=== PATIENT | female | born 1960 | race Caucasian/White ===

== ENCOUNTER 2020-08-21 18:32 | Inpatient (IN) | payer OTHER, SELFPAY ==
[2020-08-21 18:30] VITALS: BP 119/62; PULSE 64; RESP 20; TEMP 37.4; O2SAT 97; BMI 43.5
[2020-08-21 19:48] VITALS: BP 119/62; PULSE 64; RESP 20; TEMP 37.4; O2SAT 97; BMI 43.5
[2020-08-21 20:25] VITALS: BMI 43.5
--- NOTE | 2020-08-21 20:49 | PM.IMHP ---
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 Patient also with history of vertebral osteomyelitis and osteomyelitis of the left toe. Patient has a history of depression diabetes type 2 and paraplegia, paraplegia appears to be secondary to what they describe as concern for transverse myelitis. Patient had a echocardiogram that showed no vegetation. Review of Systems Review of Systems: All systems reviewed & are unremarkable except as noted in HPI and below PMFSH Past Medical History Medical History Paraspinal abscess Social History Social History Smoking packs per day: 2 Smoking cigarettes per day: 40.0 Smoking status: Former smoker Tobacco type: cigarettes Smokeless tobacco user: snuff Smoking end date: 10/25/19 Alcohol intake: current Drinks per week: 2 Substance use: never Gender identity (if verbalized by the patient): Female Sexual Orientation (if Verbalized by the Patient): Straight or Heterosexual Spiritual care concerns: No Meds Home Medications and Allergies Home Medications Medication Instructions Recorded Confirmed Type acetaminophen 650 mg PO Q4H PRN 08/21/20 08/21/20 History aspirin [Adult Aspirin] 81 mg PO DAILY 08/21/20 08/21/20 History atorvastatin 80 mg PO DAILY 08/21/20 08/21/20 History baclofen 10 mg PO TID PRN 08/21/20 08/21/20 History clopidogrel 75 mg PO DAILY 08/21/20 08/21/20 History famotidine 20 mg PO BID PRN 08/21/20 08/21/20 History ferrous sulfate 324 mg PO BIDWM 08/21/20 08/21/20 History gabapentin 100 mg PO TID 08/21/20 08/21/20 History insulin glargine [Lantus U-100 32 unit SUBCUT QPM 08/21/20 08/21/20 History Insulin] lidocaine [Lidoderm] 1 patch TOPICAL DAILY 08/21/20 08/21/20 History metformin 1,000 mg PO BID 08/21/20 08/21/20 History metoprolol succinate [Toprol XL] 200 mg PO DAILY 08/21/20 08/21/20 History ondansetron [Zofran ODT] 4 mg PO Q6H PRN 08/21/20 08/21/20 History oxacillin in dextrose(iso-osm) 2,000 mg IV Q4H 08/21/20 08/21/20 History oxycodone 10 mg PO Q4H PRN 08/21/20 08/21/20 History pantoprazole 40 mg PO QAM 08/21/20 08/21/20 History polyethylene glycol 3350 [Miralax] 17 g PO BID 08/21/20 08/21/20 History sennosides-docusate sodium [Senna 2 tab-cap PO BID 08/21/20 08/21/20 History with Docusate Sodium] venlafaxine [Effexor XR] 150 mg PO DAILY 08/21/20 08/21/20 History Allergies Allergy/AdvReac Type Severity Reaction Status Date / Time metrizamide Allergy Intermediate Hives Verified 08/21/20 18:37 Vital Signs Vital Signs - 24 hr 08/21/20 18:30 08/21/20 19:48 Temperature 37.4 C 37.4 C Pulse Rate 64 64 Respiratory Rate 20 20 Blood Pressure 119/62 119/62 Pulse Oximetry 97 97 Exam Const: General: no acute distress HENMT: Ears: TM's normal bilaterally Eyes: General: appearance normal, both eyes and all related structures Neck: Neck: no JVD Resp: Auscultation: clear to auscultation bilaterally Cardio: Rate: regular rate Rhythm: regular rhythm GI: GI Palp: Yes Soft to palpation Skin: General skin exam: normal color and no rashes or lesions noted Neuro: Cognition (Neuro): normal cognition Motor exam (neuro): Abnormal motor strength present Psych: Mental Status: mental status grossly normal
[2020-08-21] MEDS: oxyCODONE HCL (*CRX) 5 MG TAB IR 10 MG PO (21:47)
[2020-08-21] MEDS: OXACILLIN SODIUM 2 GM IVPB (22:17)
[2020-08-21] MEDS: BACLOFEN 10 MG TABLET PO (22:18)
[2020-08-22] VITALS (7 sets, daily range): BP systolic 105–146; BP diastolic 62–78; PULSE 58–81; RESP 14–20; TEMP 35.9–37.8; O2SAT 93–96; BMI 10.0
[2020-08-22] MEDS: OXACILLIN SODIUM 2 GM IVPB ×2 (01:59→05:46)
[2020-08-22] MEDS: BACLOFEN 10 MG TABLET PO (05:56)
[2020-08-22] MEDS: oxyCODONE HCL (*CRX) 5 MG TAB IR 10 MG PO ×2 (05:56→18:01)
--- NOTE | 2020-08-22 07:21 | PC.NURSE ---
Patient noted to have pressure area on left interior glute 2 cm x 2 cm with yellow slough and scant yellow drainage. Barrier cream applied to area.
[2020-08-22] MEDS: ONDANSETRON HCL ODT 4 MG TABLET PO (08:24)
[2020-08-22] MEDS: FERROUS SULFATE 324 MG TABLET PO ×2 (08:24→17:40)
[2020-08-22] MEDS: metFORMIN HCL 500 MG TABLET 1000 MG PO ×2 (08:24→17:40)
[2020-08-22 08:28] LABS: Basophils Absolute Auto 0.03 K/mm3 (0.00-0.10); Basophils Percent Auto 0.3 % (0.0-1.0); Eosinophils Percent Auto 2.1 % (1.0-6.0); Hematocrit 26.1 % (35.0-49.0); Hemoglobin 7.9 g/dL (12.0-15.0); Immature Granulocyte Absolute 0.06 K/mm3 (0.00-0.00); Immature Granulocyte Percent A 0.6 % (0.0-0.0); Lymphocytes Percent Auto 13.7 % (18.0-42.0); Mean Corpuscular HGB Conc 30.3 g/dL (32.0-36.0); Mean Corpuscular Hemoglobin 25.9 pg (27.0-31.0); Mean Corpuscular Volume 85.6 fL (78.0-102.0); Mean Platelet Volume 8.7 fl (9.2-11.8); Monocytes Absolute Auto 0.76 K/mm3 (0.10-0.90); Neutrophils Absolute Auto 7.2 K/mm3 (1.7-7.2); Neutrophils Percent Auto 75.3 % (50.0-70.0); Platelet Count Result 345 K/mm3 (150-420); Red Blood Count 3.05 M/mm3 (4.20-5.40); Red Cell Distribution Width 16.3 % (11.6-14.4); White Blood Count 9.5 K/mm3 (4.8-10.8)
[2020-08-22 08:32] LABS: Glucose Point of Care 103 (65-105)
[2020-08-22 08:58] LABS: Alanine Aminotransferase 8 U/L (14-59); Albumin Level 1.5 g/dL (3.4-5.0); Alkaline Phosphatase 65 U/L (46-116); Anion Gap 6 mmol/L (8-16); Aspartate Amino Transferase 12 U/L (15-37); Bilirubin,Total 0.1 mg/dL (0.00-1.00); Blood Urea Nitrogen 8 mg/dL (7-18); Calcium 8.2 mg/dL (8.5-10.1); Carbon Dioxide 29 mmol/L (21-32); Chloride 99 mmol/L (98-108); Estimated CRCL calculation 119 ml/min; Estimated Glomerular Filt Rate > 60; Glucose 104 mg/dL (70-99); Osmolality Calculated 276 mOsm/kg (285-295); Potassium 4.3 mmol/L (3.5-5.1); Sodium 134 mmol/L (136-145); Total Protein 5.8 g/dL (6.4-8.2)
[2020-08-22] MEDS: ATORVASTATIN 40 MG TABLET 80 MG PO (09:43)
[2020-08-22] MEDS: OXACILLIN SODIUM 2 GM in SODIUM CHLORIDE 0.9% IV 100 ML IVPB ×4 (09:44→21:59)
[2020-08-22] MEDS: ACETAMINOPHEN 325 MG TABLET 650 MG PO (09:46)
[2020-08-22] MEDS: VENLAFAXINE HCL XR 75 MG CAP.ER.24H 150 MG PO (09:46)
[2020-08-22] MEDS: GABAPENTIN 100 MG CAPSULE PO ×3 (09:47→17:40)
[2020-08-22] MEDS: ASPIRIN 81 MG CHEWABLE TABLET PO (09:48)
[2020-08-22] MEDS: CLOPIDOGREL BISULFATE 75 MG TABLET PO (09:48)
[2020-08-22] MEDS: PANTOPRAZOLE 40 MG TABLET PO (09:48)
[2020-08-22] MEDS: SENNA/DOCUSATE SODIUM TABLET 2 TAB PO (09:48)
[2020-08-22 11:51] LABS: Glucose Point of Care 115 (65-105)
[2020-08-22] MEDS: PROCHLORPERAZINE EDISYLATE 10 MG/2 ML VIAL IV PUSH (12:43)
[2020-08-22 16:59] LABS: Glucose Point of Care 107 (65-105)
[2020-08-22] MEDS: INSULIN GLARGINE (*BKC) 100 UNITS/ML 32 UNITS SUB-Q (18:13)
[2020-08-22 20:18] LABS: Glucose Point of Care 99 (65-105)
[2020-08-22] MEDS: COLLAGENASE OINT 30 GM TUBE 1 APPLIC TOPICAL (20:50)
[2020-08-23] MEDS: OXACILLIN SODIUM 2 GM in SODIUM CHLORIDE 0.9% IV 100 ML IVPB ×6 (01:56→22:38)
[2020-08-23] MEDS: oxyCODONE HCL (*CRX) 5 MG TAB IR 10 MG PO ×5 (04:44→21:04)
[2020-08-23 05:44] LABS: Hematocrit 26.8 % (35.0-49.0); Hemoglobin 8.1 g/dL (12.0-15.0); Mean Corpuscular HGB Conc 30.2 g/dL (32.0-36.0); Mean Corpuscular Hemoglobin 25.9 pg (27.0-31.0); Mean Corpuscular Volume 85.6 fL (78.0-102.0); Platelet Count Result 358 K/mm3 (150-420); Red Blood Count 3.13 M/mm3 (4.20-5.40); White Blood Count 9.3 K/mm3 (4.8-10.8)
[2020-08-23 06:04] LABS: Anion Gap 7 mmol/L (8-16); Blood Urea Nitrogen 7 mg/dL (7-18); Calcium 8.4 mg/dL (8.5-10.1); Carbon Dioxide 29 mmol/L (21-32); Chloride 102 mmol/L (98-108); Estimated CRCL calculation 137 ml/min; Estimated Glomerular Filt Rate > 60; Glucose 63 mg/dL (70-99); Osmolality Calculated 282 mOsm/kg (285-295); Potassium 4.2 mmol/L (3.5-5.1); Sodium 138 mmol/L (136-145)
[2020-08-23 08:00] VITALS: BP 134/64; PULSE 84; RESP 20; TEMP 37.2; O2SAT 94
[2020-08-23 08:11] LABS: Glucose Point of Care 68 (65-105)
[2020-08-23] MEDS: ACETAMINOPHEN 325 MG TABLET 650 MG PO (09:08)
[2020-08-23] MEDS: BACLOFEN 10 MG TABLET PO ×2 (09:08→16:37)
[2020-08-23] MEDS: metFORMIN HCL 500 MG TABLET 1000 MG PO ×2 (09:09→16:37)
[2020-08-23] MEDS: GABAPENTIN 100 MG CAPSULE PO ×3 (09:10→16:37)
[2020-08-23] MEDS: PANTOPRAZOLE 40 MG TABLET PO (09:10)
[2020-08-23] MEDS: CLOPIDOGREL BISULFATE 75 MG TABLET PO (09:10)
[2020-08-23] MEDS: VENLAFAXINE HCL XR 75 MG CAP.ER.24H 150 MG PO (09:10)
[2020-08-23] MEDS: FAMOTIDINE 20 MG TABLET PO (09:11)
[2020-08-23] MEDS: ATORVASTATIN 40 MG TABLET 80 MG PO (09:11)
[2020-08-23] MEDS: ASPIRIN 81 MG CHEWABLE TABLET PO (09:11)
[2020-08-23] MEDS: FERROUS SULFATE 324 MG TABLET PO ×2 (09:11→16:37)
[2020-08-23 09:12] VITALS: PULSE 84
[2020-08-23] MEDS: METOPROLOL SUCCINATE EXT REL 50 MG TABCR 200 MG PO (09:12)
[2020-08-23] MEDS: COLLAGENASE OINT 30 GM TUBE 1 APPLIC TOPICAL ×2 (09:13→21:13)
[2020-08-23 11:34] LABS: Glucose Point of Care 70 (65-105)
[2020-08-23 16:00] VITALS: BP 134/61; PULSE 68; RESP 18; TEMP 36.6; O2SAT 95
[2020-08-23] MEDS: ONDANSETRON HCL ODT 4 MG TABLET PO (16:36)
[2020-08-23 16:46] LABS: Glucose Point of Care 65 (65-105)
--- NOTE | 2020-08-23 17:45 | PC.NURSE ---
Dressing change to left foot complete. Patient tolerated well. Sutures in place,well approximated. NO s/s infection. Lantus 32 Units held. Blood sugars AC: 68, 70, 65. Per Dr. Dyer
[2020-08-23] MEDS: PROCHLORPERAZINE EDISYLATE 10 MG/2 ML VIAL IV PUSH (21:05)
[2020-08-23 21:32] LABS: Glucose Point of Care 80 (65-105)
[2020-08-24] VITALS: BP 124/51; PULSE 69; RESP 18; TEMP 36.4
[2020-08-24] MEDS: OXACILLIN SODIUM 2 GM in SODIUM CHLORIDE 0.9% IV 100 ML IVPB ×6 (02:15→22:13)
[2020-08-24] MEDS: oxyCODONE HCL (*CRX) 5 MG TAB IR 10 MG PO ×4 (07:34→20:44)
[2020-08-24] MEDS: ONDANSETRON HCL ODT 4 MG TABLET PO (07:34)
[2020-08-24] MEDS: BACLOFEN 10 MG TABLET PO ×3 (07:35→20:45)
[2020-08-24 07:41] LABS: Glucose Point of Care 106 (65-105)
[2020-08-24 08:00] VITALS: BP 139/56; PULSE 70; RESP 18; TEMP 36.9; O2SAT 95
[2020-08-24] MEDS: VENLAFAXINE HCL XR 75 MG CAP.ER.24H 150 MG PO (09:31)
[2020-08-24] MEDS: metFORMIN HCL 500 MG TABLET 1000 MG PO ×2 (09:31→16:46)
[2020-08-24] MEDS: ATORVASTATIN 40 MG TABLET 80 MG PO (09:31)
[2020-08-24] MEDS: FERROUS SULFATE 324 MG TABLET PO ×2 (09:31→16:47)
[2020-08-24] MEDS: CLOPIDOGREL BISULFATE 75 MG TABLET PO (09:31)
[2020-08-24 09:32] VITALS: PULSE 70
[2020-08-24] MEDS: GABAPENTIN 100 MG CAPSULE PO ×3 (09:32→16:46)
[2020-08-24] MEDS: METOPROLOL SUCCINATE EXT REL 50 MG TABCR 200 MG PO (09:32)
[2020-08-24] MEDS: ASPIRIN 81 MG CHEWABLE TABLET PO (09:32)
[2020-08-24] MEDS: PANTOPRAZOLE 40 MG TABLET PO (09:32)
[2020-08-24] MEDS: FAMOTIDINE 20 MG TABLET PO (09:33)
[2020-08-24] MEDS: COLLAGENASE OINT 30 GM TUBE 1 APPLIC TOPICAL ×2 (09:35→20:46)
[2020-08-24 11:59] LABS: Glucose Point of Care 101 (65-105)
--- NOTE | 2020-08-24 13:31 | PC.NURSE ---
Patient refused santyl to buttocks at this time. Refused dressing to be changed at this time.
[2020-08-24 16:00] VITALS: BP 148/57; PULSE 79; RESP 18; TEMP 37.3; O2SAT 92
[2020-08-24 16:56] LABS: Glucose Point of Care 107 (65-105)
[2020-08-24 20:57] LABS: Glucose Point of Care 116 (65-105)
[2020-08-25] VITALS: BP 121/48; PULSE 74; RESP 18; TEMP 36.7; O2SAT 90
--- NOTE | 2020-08-25 01:11 | PC.NURSE ---
Patient choose not to be turned and repositioned in bed every 2 hours. Patient states that she is comfortable and will notify handbook writer when need to be repositioned. Tension Machine Operator did give education on wound care and healing process and positive effects with turning and reposition. Patient aware.
[2020-08-25] MEDS: OXACILLIN SODIUM 2 GM in SODIUM CHLORIDE 0.9% IV 100 ML IVPB ×6 (02:05→22:12)
[2020-08-25] MEDS: BACLOFEN 10 MG TABLET PO ×2 (06:06→13:43)
[2020-08-25] MEDS: oxyCODONE HCL (*CRX) 5 MG TAB IR 10 MG PO ×3 (06:06→16:07)
[2020-08-25 07:30] VITALS: BP 141/54; PULSE 76; RESP 18; TEMP 37.1; O2SAT 93
[2020-08-25 08:13] LABS: Glucose Point of Care 113 (65-105)
[2020-08-25] MEDS: FAMOTIDINE 20 MG TABLET PO (09:16)
[2020-08-25 09:17] VITALS: PULSE 76
[2020-08-25 09:17] LABS: Hematocrit 26.2 % (35.0-49.0); Hemoglobin 8.1 g/dL (12.0-15.0)
[2020-08-25] MEDS: PANTOPRAZOLE 40 MG TABLET PO (09:17)
[2020-08-25] MEDS: METOPROLOL SUCCINATE EXT REL 50 MG TABCR 200 MG PO (09:17)
[2020-08-25] MEDS: ATORVASTATIN 40 MG TABLET 80 MG PO (09:18)
[2020-08-25] MEDS: VENLAFAXINE HCL XR 75 MG CAP.ER.24H 150 MG PO (09:18)
[2020-08-25] MEDS: GABAPENTIN 100 MG CAPSULE PO ×3 (09:18→16:07)
[2020-08-25] MEDS: ASPIRIN 81 MG CHEWABLE TABLET PO (09:18)
[2020-08-25] MEDS: FERROUS SULFATE 324 MG TABLET PO ×2 (09:18→16:07)
[2020-08-25] MEDS: SENNA/DOCUSATE SODIUM TABLET 2 TAB PO ×2 (09:18→16:07)
[2020-08-25] MEDS: CLOPIDOGREL BISULFATE 75 MG TABLET PO (09:19)
[2020-08-25] MEDS: COLLAGENASE OINT 30 GM TUBE 1 APPLIC TOPICAL ×2 (09:20→20:50)
[2020-08-25 10:19] LABS: Glucose Point of Care 243 (65-105)
[2020-08-25 11:47] LABS: Glucose Point of Care 156 (65-105)
[2020-08-25] MEDS: ONDANSETRON HCL ODT 4 MG TABLET PO (11:58)
[2020-08-25 14:00] VITALS: BP 160/54; PULSE 80; RESP 18; TEMP 36.9; O2SAT 97
--- NOTE | 2020-08-25 14:49 | PM.IMPN ---
Progress Note: A&P Assessment and Plan (1) Paraspinal abscess: Code(s): M46.20 - Osteomyelitis of vertebra, site unspecified Status: Acute Assessment and Plan: 08/25/2020 Oxacillin IV for 6 weeks, end date of 09/29/2020, cause of paraplegia, evaluating LE for sensation, both LE show fasciculation greater on the Left side, legs marked where Pt states she is able to start feeling light touch, PT working with Pt from Upper body strength and passive movement of LE (2) Vertebral osteomyelitis: Code(s): M46.20 - Osteomyelitis of vertebra, site unspecified Status: Acute Assessment and Plan: 08/25/2020 again Oxacillin IV for 6 weeks with end date of 09/29/2020, Lidocaine Patch, Oxycodone Q4H, pain is well controled at this time (3) Amputation of left great toe: Code(s): S98.112A - Complete traumatic amputation of left great toe, initial encounter Status: Acute Assessment and Plan: 08/25/2020 remove sutures today, site has healed well, site is not draining. (4) Depression: Code(s): F32.9 - Major depressive disorder, single episode, unspecified Status: Acute Assessment and Plan: 08/25/2020 continue home medication of Effexor, monitor Pt and make changes as needed. (5) Type 2 diabetes mellitus: Code(s): E11.9 - Type 2 diabetes mellitus without complications Status: Acute Assessment and Plan: 08/25/2020 glucose checks ACHS, Hypoglycemic protocol in place, Consistent Carb Diet, continue Gabapentin, Glargine 32 U PM, SSI, Metformin, will make adjustments as needed (6) Epigastric pain: Code(s): R10.13 - Epigastric pain Status: Acute Assessment and Plan: 08/25/2020 Pt is currently on Pepcid and Protonix, Zofran was added (7) Hypertension: Code(s): I10 - Essential (primary) hypertension Status: Acute Assessment and Plan: 08/25/2020 continue with metoprolol, monitor VS, make adjustment to medications as needed. VSS at this time Subjective Date/time seen: 08/25/20 14:49 Pt states in general she feels pretty good and admits that on occasion she is depressed given her paralysis and hospitalization. Today Pt states that she thinks she is able to move her left foot once in a while. (assessment: this looks like fasciculation). Pt denies breathing difficulty and no CP. She has a minor complaint of epigastric pain that started today, currently on Pepcid and Protonix and Zofran. Pt has no other concern at this time. Review of Systems Constitutional: Constitutional: Reports no additional constitutional complaints Cardiovascular: Cardiovascular: Reports no additional cardiovascular complaints, Denies chest pain, Denies chest pain at rest and Denies chest pain with activity Respiratory: Respiratory: Reports no additional respiratory complaints, Denies chest congestion, Denies dyspnea and Denies dyspnea on exertion Gastrointestinal: Gastrointestinal: Reports no additional gastrointestinal complaints and Reports other (epigastric pain) Musculoskeletal: Comments: Unable to move below pelvis Integumentary/Breasts: Comments: Surgical site left great toe amputation Neurologic: Reports Sensory deficit (Neuro) (bilateral LE) Exam Const: General: cooperative, comfortable, no acute distress, alert, awake and Physically active (with care and helps turn and move in bed) Nutritional Appearance: obese morbidly obese Limitations: no limitations (Paraplegia) Resp: Effort & Inspection: normal respiratory effort Auscultation: clear to auscultation bilaterally Cardio: Rate: regular rate Heart sounds: S1 normal heart sound present and S2 normal heart sound present GI: GI Palp: Yes abdominal tenderness (mostly epigastric to palpation) Urinary Catheter: Urinary Catheter: patent and draining Neuro: General: oriented to person, oriented to place and oriented to time Cranial nerves: Yes CN's II-XII intact bilaterally (grossly intact) Cognition (Neuro):
[2020-08-25] MEDS: metFORMIN HCL 500 MG TABLET 1000 MG PO (16:07)
[2020-08-25 16:10] VITALS: BP 140/58; PULSE 74; RESP 18; TEMP 36.8; O2SAT 96
[2020-08-25 16:15] LABS: Glucose Point of Care 122 (65-105)
[2020-08-25] MEDS: ACETAMINOPHEN 325 MG TABLET 650 MG PO (18:04)
[2020-08-25] MEDS: PROCHLORPERAZINE EDISYLATE 10 MG/2 ML VIAL IV PUSH (18:05)
[2020-08-25 20:42] LABS: Glucose Point of Care 110 (65-105)
[2020-08-26] VITALS: BP 155/75; PULSE 75; RESP 20; TEMP 36.9; O2SAT 95
[2020-08-26] MEDS: OXACILLIN SODIUM 2 GM in SODIUM CHLORIDE 0.9% IV 100 ML IVPB ×6 (01:51→21:58)
[2020-08-26] MEDS: oxyCODONE HCL (*CRX) 5 MG TAB IR 10 MG PO ×4 (06:55→20:15)
[2020-08-26 07:45] VITALS: BP 149/53; PULSE 83; RESP 20; TEMP 37.2; O2SAT 94
[2020-08-26 08:21] LABS: Glucose Point of Care 101 (65-105)
[2020-08-26] MEDS: VENLAFAXINE HCL XR 75 MG CAP.ER.24H 150 MG PO (09:38)
[2020-08-26 09:39] VITALS: PULSE 83
[2020-08-26] MEDS: PANTOPRAZOLE 40 MG TABLET PO (09:39)
[2020-08-26] MEDS: CLOPIDOGREL BISULFATE 75 MG TABLET PO (09:39)
[2020-08-26] MEDS: SENNA/DOCUSATE SODIUM TABLET 2 TAB PO ×2 (09:39→16:24)
[2020-08-26] MEDS: ATORVASTATIN 40 MG TABLET 80 MG PO (09:39)
[2020-08-26] MEDS: METOPROLOL SUCCINATE EXT REL 50 MG TABCR 200 MG PO (09:39)
[2020-08-26] MEDS: COLLAGENASE OINT 30 GM TUBE 1 APPLIC TOPICAL ×2 (09:40→21:26)
[2020-08-26] MEDS: FERROUS SULFATE 324 MG TABLET PO ×2 (09:40→16:25)
[2020-08-26] MEDS: ASPIRIN 81 MG CHEWABLE TABLET PO (09:40)
[2020-08-26] MEDS: GABAPENTIN 100 MG CAPSULE PO ×3 (09:40→16:25)
[2020-08-26] MEDS: BACLOFEN 10 MG TABLET PO ×2 (09:40→20:17)
[2020-08-26 11:00] VITALS: BMI 10.0
[2020-08-26 11:05] VITALS: BMI 10.0
[2020-08-26 11:51] LABS: Glucose Point of Care 103 (65-105)
[2020-08-26] MEDS: FAMOTIDINE 20 MG TABLET PO (11:52)
[2020-08-26] MEDS: ACETAMINOPHEN 325 MG TABLET 650 MG PO ×2 (14:08→22:20)
[2020-08-26 15:55] VITALS: BP 141/63; PULSE 75; RESP 18; TEMP 37.2; O2SAT 98
[2020-08-26] MEDS: metFORMIN HCL 500 MG TABLET 1000 MG PO (16:25)
[2020-08-26 17:04] LABS: Glucose Point of Care 105 (65-105)
[2020-08-27] VITALS: BP 129/56; PULSE 88; RESP 20; TEMP 36.3; O2SAT 96
[2020-08-27] MEDS: OXACILLIN SODIUM 2 GM in SODIUM CHLORIDE 0.9% IV 100 ML IVPB ×6 (02:04→21:04)
[2020-08-27] MEDS: oxyCODONE HCL (*CRX) 5 MG TAB IR 10 MG PO ×4 (02:11→22:00)
--- NOTE | 2020-08-27 02:23 | PC.NURSE ---
Dr. Mccabe notified of pt's lennon tubing having blood in it. He advised that we continue to monitor pt's lennon.
[2020-08-27] MEDS: ONDANSETRON HCL ODT 4 MG TABLET PO (02:53)
[2020-08-27 04:20] LABS: Glucose Point of Care 117 (65-105)
[2020-08-27 07:55] VITALS: BP 127/59; PULSE 81; RESP 18; TEMP 37.1; O2SAT 94
[2020-08-27 09:30] LABS: Glucose Point of Care 139 (65-105)
[2020-08-27 09:50] VITALS: PULSE 81
[2020-08-27] MEDS: GABAPENTIN 100 MG CAPSULE PO ×3 (09:50→16:45)
[2020-08-27] MEDS: METOPROLOL SUCCINATE EXT REL 50 MG TABCR 200 MG PO (09:50)
[2020-08-27] MEDS: VENLAFAXINE HCL XR 75 MG CAP.ER.24H 150 MG PO (09:51)
[2020-08-27] MEDS: FERROUS SULFATE 324 MG TABLET PO ×2 (09:51→16:44)
[2020-08-27] MEDS: PANTOPRAZOLE 40 MG TABLET PO (09:51)
[2020-08-27] MEDS: ASPIRIN 81 MG CHEWABLE TABLET PO (09:51)
[2020-08-27] MEDS: SENNA/DOCUSATE SODIUM TABLET 2 TAB PO ×2 (09:51→16:45)
[2020-08-27] MEDS: ATORVASTATIN 40 MG TABLET 80 MG PO (09:51)
[2020-08-27] MEDS: CLOPIDOGREL BISULFATE 75 MG TABLET PO (09:51)
[2020-08-27] MEDS: BACLOFEN 10 MG TABLET PO ×2 (09:52→16:46)
[2020-08-27] MEDS: FAMOTIDINE 20 MG TABLET PO (09:54)
[2020-08-27] MEDS: COLLAGENASE OINT 30 GM TUBE 1 APPLIC TOPICAL ×2 (09:55→21:03)
[2020-08-27 10:28] VITALS: BMI 10.0
[2020-08-27 12:54] LABS: Glucose Point of Care 119 (65-105)
[2020-08-27 16:00] VITALS: BP 166/59; PULSE 77; RESP 18; TEMP 37.2; O2SAT 93
[2020-08-27] MEDS: metFORMIN HCL 500 MG TABLET 1000 MG PO (16:44)
[2020-08-27 16:57] LABS: Glucose Point of Care 111 (65-105)
[2020-08-27 21:36] LABS: Glucose Point of Care 130 (65-105)
[2020-08-28] VITALS: BP 157/60; PULSE 79; RESP 16; TEMP 36.1; O2SAT 94
[2020-08-28] MEDS: OXACILLIN SODIUM 2 GM in SODIUM CHLORIDE 0.9% IV 100 ML IVPB ×6 (02:17→22:11)
[2020-08-28] MEDS: oxyCODONE HCL (*CRX) 5 MG TAB IR 10 MG PO ×5 (04:37→22:43)
--- NOTE | 2020-08-28 07:36 | P.PN_ITS ---
Progress Note: A&P Assessment and Plan (1) Weakness: Code(s): R53.1 - Weakness Status: Acute Assessment and Plan: ? PT/OT will work on upper body strength * Exhibit tolerance during physical activity as evidenced by a normal fluctuation of vital signs during physical activity. ? Patient will be ability to perform required activities of daily living. ? Provide appropriate nutrition for healing and strength. ? Use appropriate to prevent falls. ? Continue physical therapy/occupational therapy. (2) Paraspinal abscess: Code(s): M46.20 - Osteomyelitis of vertebra, site unspecified Status: Acute Assessment and Plan: * MRI of the vertebrae 06/08/2021-oval peripheral enhancing fluid collection in the left posterior upper lung field measuring 4.6 x 3.2 cm. * Associated with epidural phlegmon with paraplegia * Oxacillin IV for 6 weeks, end date of 09/29/2020 * ID will need weekly labs and follow-up * No surgical intervention needed at outside hospital (3) Amputation of left great toe: Code(s): S98.112A - Complete traumatic amputation of left great toe, initial encounter Status: Acute Assessment and Plan: * MRI at outside hospital indicates overlying cellulitis and osteomyelitis of the first metatarsal * VALERIA showed left foot mild arterial insufficiency * Sutures removed from previous provider on 08/25/2020 * Nonweightbearing on forefoot . (4) Depression: Code(s): F32.9 - Major depressive disorder, single episode, unspecified Status: Acute Assessment and Plan: continue Effexor, (5) Type 2 diabetes mellitus: Code(s): E11.9 - Type 2 diabetes mellitus without complications Status: Acute Assessment and Plan: * Blood sugars controlled * Continue Accu-Chek with sliding scale hypoglycemic protocol * glucose checks ACHS, Hypoglycemic protocol in place, * Consistent Carb Diet, * continue Gabapentin, Glargine 32 U PM, SSI, Metformin, will make adjustments as needed (6) Epigastric pain: Code(s): R10.13 - Epigastric pain Status: Acute Assessment and Plan: * Continue Pepcid and Protonix, Zofran (7) Hypertension: Code(s): I10 - Essential (primary) hypertension Status: Acute Assessment and Plan: * Vital signs slightly elevated we will continue to monitor and adjust as needed * continue with metoprolol, * monitor VS, * make adjustment to medications as needed. (8) Vertebral osteomyelitis: Code(s): M46.20 - Osteomyelitis of vertebra, site unspecified Status: Acute Assessment and Plan: * Oxacillin IV for 6 weeks with end date of 09/29/2020, * Continue lidocaine Patch, Oxycodone (9) Paraplegia: Code(s): G82.20 - Paraplegia, unspecified Status: Acute Assessment and Plan: * Secondary to deficits likely due to thoracic myelopathy from phlegmon * Sensory deficit between T12 (10) PVD (peripheral vascular disease): Code(s): I73.9 - Peripheral vascular disease, unspecified Status: Acute Assessment and Plan: * Underwent arterial stenting of the left leg on 07/15/2020 * Continue Plavix (11) Empyema lung: Code(s): J86.9 - Pyothorax without fistula Status: Acute Assessment and Plan: * Aspirated at an outside hospital * Culture positive for MSSA * Started oxacillin per ID at an outside hospital * Recommends repeat chest x-ray after therapy * Blood culture at outside hospital grew MSSA and strep anginosos, repeat bl
--- NOTE | 2020-08-28 07:36 | WPDPN ---
Progress Note: A&P Assessment and Plan (1) Weakness: Code(s): R53.1 - Weakness Status: Acute Assessment and Plan: ? PT/OT will work on upper body strength Exhibit tolerance during physical activity as evidenced by a normal fluctuation of vital signs during physical activity. ? Patient will be ability to perform required activities of daily living. ? Provide appropriate nutrition for healing and strength. ? Use appropriate to prevent falls. ? Continue physical therapy/occupational therapy. (2) Paraspinal abscess: Code(s): M46.20 - Osteomyelitis of vertebra, site unspecified Status: Acute Assessment and Plan: MRI of the vertebrae 06/08/2021-oval peripheral enhancing fluid collection in the left posterior upper lung field measuring 4.6 x 3.2 cm. Associated with epidural phlegmon with paraplegia Oxacillin IV for 6 weeks, end date of 09/29/2020 ID will need weekly labs and follow-up No surgical intervention needed at outside hospital (3) Amputation of left great toe: Code(s): S98.112A - Complete traumatic amputation of left great toe, initial encounter Status: Acute Assessment and Plan: MRI at outside hospital indicates overlying cellulitis and osteomyelitis of the first metatarsal VALERIA showed left foot mild arterial insufficiency Sutures removed from previous provider on 08/25/2020 Nonweightbearing on forefoot . (4) Depression: Code(s): F32.9 - Major depressive disorder, single episode, unspecified Status: Acute Assessment and Plan: continue Effexor, (5) Type 2 diabetes mellitus: Code(s): E11.9 - Type 2 diabetes mellitus without complications Status: Acute Assessment and Plan: Blood sugars controlled Continue Accu-Chek with sliding scale hypoglycemic protocol glucose checks ACHS, Hypoglycemic protocol in place, Consistent Carb Diet, continue Gabapentin, Glargine 32 U PM, SSI, Metformin, will make adjustments as needed (6) Epigastric pain: Code(s): R10.13 - Epigastric pain Status: Acute Assessment and Plan: Continue Pepcid and Protonix, Zofran (7) Hypertension: Code(s): I10 - Essential (primary) hypertension Status: Acute Assessment and Plan: Vital signs slightly elevated we will continue to monitor and adjust as needed continue with metoprolol, monitor VS, make adjustment to medications as needed. (8) Vertebral osteomyelitis: Code(s): M46.20 - Osteomyelitis of vertebra, site unspecified Status: Acute Assessment and Plan: Oxacillin IV for 6 weeks with end date of 09/29/2020, Continue lidocaine Patch, Oxycodone (9) Paraplegia: Code(s): G82.20 - Paraplegia, unspecified Status: Acute Assessment and Plan: Secondary to deficits likely due to thoracic myelopathy from phlegmon Sensory deficit between T12 (10) PVD (peripheral vascular disease): Code(s): I73.9 - Peripheral vascular disease, unspecified Status: Acute Assessment and Plan: Underwent arterial stenting of the left leg on 07/15/2020 Continue Plavix (11) Empyema lung: Code(s): J86.9 - Pyothorax without fistula Status: Acute Assessment and Plan: Aspirated at an outside hospital Culture positive for MSSA Started oxacillin per ID at an outside hospital Recommends repeat chest x-ray after therapy Blood culture at outside hospital grew MSSA and strep anginosos, repeat blood culture on 08/09/2020Negative TTE did not show any obvious vegetation (12) Anemia: Code(s): D64.9 - Anemia, unspecified Status: Acute Assessment and Plan: Patient hemoglobin fell below 6 at outside hospital infused with PRBCs No active bleeding noted at that Will periodically check hemoglobin hematocrit Will transfuse for hemoglobin less than 7 (13) Ulcer: Status: Acute Assessment and Plan: To the buttoc
[2020-08-28 08:00] VITALS: BP 120/50; PULSE 68; RESP 20; TEMP 36.6; O2SAT 95
[2020-08-28 08:31] LABS: Glucose Point of Care 144 (65-105)
[2020-08-28 09:17] VITALS: PULSE 80
[2020-08-28] MEDS: FAMOTIDINE 20 MG TABLET PO ×2 (09:17→17:30)
[2020-08-28] MEDS: METOPROLOL SUCCINATE EXT REL 50 MG TABCR 200 MG PO (09:17)
[2020-08-28] MEDS: ATORVASTATIN 40 MG TABLET 80 MG PO (09:19)
[2020-08-28] MEDS: PANTOPRAZOLE 40 MG TABLET PO (09:19)
[2020-08-28] MEDS: metFORMIN HCL 500 MG TABLET 1000 MG PO ×2 (09:20→17:30)
[2020-08-28] MEDS: VENLAFAXINE HCL XR 75 MG CAP.ER.24H 150 MG PO (09:22)
[2020-08-28] MEDS: GABAPENTIN 100 MG CAPSULE PO ×3 (09:22→17:30)
[2020-08-28] MEDS: ASPIRIN 81 MG CHEWABLE TABLET PO (09:23)
[2020-08-28] MEDS: CLOPIDOGREL BISULFATE 75 MG TABLET PO (09:23)
[2020-08-28] MEDS: FERROUS SULFATE 324 MG TABLET PO ×2 (09:23→17:30)
[2020-08-28] MEDS: COLLAGENASE OINT 30 GM TUBE 1 APPLIC TOPICAL ×2 (09:31→22:12)
[2020-08-28] MEDS: ACETAMINOPHEN 325 MG TABLET 650 MG PO (12:06)
[2020-08-28] MEDS: BACLOFEN 10 MG TABLET PO (12:08)
[2020-08-28] MEDS: ONDANSETRON HCL ODT 4 MG TABLET PO (12:08)
[2020-08-28 12:17] LABS: Glucose Point of Care 120 (65-105)
[2020-08-28] MEDS: CYCLOBENZAPRINE HCL 10 MG TABLET PO (14:11)
[2020-08-28 16:00] VITALS: BP 124/74; PULSE 74; RESP 20; TEMP 36.6; O2SAT 95
--- NOTE | 2020-08-28 17:04 | PC.NURSE ---
1600 back to bed with betty lift. repositioned and hob up. c/o being wore out and wanting to sleep till supper. ot and pt here for work out. after their services pt c/o feeling nausea and chilly. vs stable. warm covers applied. rests with eyes cloased.
--- NOTE | 2020-08-28 19:07 | PC.NURSE ---
picc line drg changed. site is clean. no redness or tenderness. flushes good and immediate return of blood.---------Nick gomez
[2020-08-28 20:07] LABS: Glucose Point of Care 125 (65-105)
[2020-08-28 22:16] LABS: Glucose Point of Care 105 (65-105)
[2020-08-29] VITALS (7 sets, daily range): BP systolic 100–148; BP diastolic 39–61; PULSE 78–88; RESP 18–20; TEMP 36.3–37.9; O2SAT 90–95; BMI 10.0
[2020-08-29] MEDS: OXACILLIN SODIUM 2 GM in SODIUM CHLORIDE 0.9% IV 100 ML IVPB ×6 (02:02→22:00)
[2020-08-29 05:46] LABS: Basophils Absolute Auto 0.04 K/mm3 (0.00-0.10); Basophils Percent Auto 0.4 % (0.0-1.0); Eosinophils Absolute Auto 0.56 K/mm3 (0.02-0.50); Eosinophils Percent Auto 5.3 % (1.0-6.0); Hematocrit 26.5 % (35.0-49.0); Hemoglobin 8.2 g/dL (12.0-15.0); Immature Granulocyte Absolute 0.07 K/mm3 (0.00-0.00); Immature Granulocyte Percent A 0.7 % (0.0-0.0); Lymphocytes Absolute Auto 1.24 K/mm3 (1.10-4.50); Lymphocytes Percent Auto 11.7 % (18.0-42.0); Mean Corpuscular HGB Conc 30.9 g/dL (32.0-36.0); Mean Corpuscular Hemoglobin 26.3 pg (27.0-31.0); Mean Corpuscular Volume 84.9 fL (78.0-102.0); Mean Platelet Volume 8.6 fl (9.2-11.8); Monocytes Absolute Auto 1.11 K/mm3 (0.10-0.90); Monocytes Percent Auto 10.4 % (2.0-11.0); Neutrophils Absolute Auto 7.6 K/mm3 (1.7-7.2); Neutrophils Percent Auto 71.5 % (50.0-70.0); Platelet Count Result 332 K/mm3 (150-420); Red Blood Count 3.12 M/mm3 (4.20-5.40); Red Cell Distribution Width 16.1 % (11.6-14.4); White Blood Count 10.6 K/mm3 (4.8-10.8)
[2020-08-29 05:56] LABS: Alanine Aminotransferase 12 U/L (14-59); Albumin Level 1.3 g/dL (3.4-5.0); Alkaline Phosphatase 85 U/L (46-116); Anion Gap 7 mmol/L (8-16); Aspartate Amino Transferase 16 U/L (15-37); Bilirubin,Total 0.2 mg/dL (0.00-1.00); Blood Urea Nitrogen 8 mg/dL (7-18); Calcium 7.8 mg/dL (8.5-10.1); Carbon Dioxide 29 mmol/L (21-32); Chloride 99 mmol/L (98-108); Estimated CRCL calculation 114 ml/min; Estimated Glomerular Filt Rate > 60; Glucose 114 mg/dL (70-99); Osmolality Calculated 279 mOsm/kg (285-295); Potassium 3.5 mmol/L (3.5-5.1); Sodium 135 mmol/L (136-145); Total Protein 5.4 g/dL (6.4-8.2)
[2020-08-29 08:15] LABS: Glucose Point of Care 137 (65-105)
[2020-08-29] MEDS: metFORMIN HCL 500 MG TABLET 1000 MG PO ×2 (08:35→16:43)
[2020-08-29] MEDS: ENOXAPARIN 40 MG/0.4 ML SYRINGE SUB-Q (08:35)
[2020-08-29] MEDS: ASPIRIN 81 MG CHEWABLE TABLET PO (08:35)
[2020-08-29] MEDS: ATORVASTATIN 40 MG TABLET 80 MG PO (08:36)
[2020-08-29] MEDS: VENLAFAXINE HCL XR 75 MG CAP.ER.24H 150 MG PO (08:36)
[2020-08-29] MEDS: METOPROLOL SUCCINATE EXT REL 50 MG TABCR 200 MG PO (08:36)
[2020-08-29] MEDS: oxyCODONE HCL (*CRX) 5 MG TAB IR 10 MG PO ×3 (08:37→21:29)
[2020-08-29] MEDS: FERROUS SULFATE 324 MG TABLET PO ×2 (08:39→16:43)
[2020-08-29] MEDS: CLOPIDOGREL BISULFATE 75 MG TABLET PO (08:39)
[2020-08-29] MEDS: GABAPENTIN 100 MG CAPSULE PO ×3 (08:39→16:43)
[2020-08-29] MEDS: CYCLOBENZAPRINE HCL 10 MG TABLET PO ×3 (08:40→23:52)
[2020-08-29] MEDS: SENNA/DOCUSATE SODIUM TABLET 2 TAB PO ×2 (08:40→21:24)
[2020-08-29] MEDS: PANTOPRAZOLE 40 MG TABLET PO (08:40)
[2020-08-29] MEDS: COLLAGENASE OINT 30 GM TUBE 1 APPLIC TOPICAL ×2 (10:47→21:00)
[2020-08-29 12:02] LABS: Glucose Point of Care 121 (65-105)
[2020-08-29] MEDS: ACETAMINOPHEN 325 MG TABLET 650 MG PO (13:23)
[2020-08-29 16:58] LABS: Glucose Point of Care 111 (65-105)
[2020-08-29 21:24] LABS: Glucose Point of Care 93 (65-105)
[2020-08-30] MEDS: OXACILLIN SODIUM 2 GM in SODIUM CHLORIDE 0.9% IV 100 ML IVPB ×6 (01:46→21:45)
[2020-08-30] MEDS: oxyCODONE HCL (*CRX) 5 MG TAB IR 10 MG PO ×4 (05:16→21:58)
[2020-08-30 07:46] VITALS: BP 114/45; PULSE 80; RESP 16; TEMP 37.1; O2SAT 95
[2020-08-30 08:11] LABS: Glucose Point of Care 102 (65-105)
[2020-08-30] MEDS: CYCLOBENZAPRINE HCL 10 MG TABLET PO ×2 (08:12→17:42)
[2020-08-30] MEDS: ENOXAPARIN 40 MG/0.4 ML SYRINGE SUB-Q (08:12)
[2020-08-30 08:13] VITALS: PULSE 80
[2020-08-30] MEDS: ASPIRIN 81 MG CHEWABLE TABLET PO (08:13)
[2020-08-30] MEDS: PANTOPRAZOLE 40 MG TABLET PO (08:13)
[2020-08-30] MEDS: METOPROLOL SUCCINATE EXT REL 50 MG TABCR 200 MG PO (08:13)
[2020-08-30] MEDS: VENLAFAXINE HCL XR 75 MG CAP.ER.24H 150 MG PO (08:14)
[2020-08-30] MEDS: GABAPENTIN 100 MG CAPSULE PO ×3 (08:14→17:41)
[2020-08-30] MEDS: metFORMIN HCL 500 MG TABLET 1000 MG PO (08:15)
[2020-08-30] MEDS: FERROUS SULFATE 324 MG TABLET PO ×2 (08:15→17:41)
[2020-08-30] MEDS: CLOPIDOGREL BISULFATE 75 MG TABLET PO (08:15)
[2020-08-30] MEDS: ATORVASTATIN 40 MG TABLET 80 MG PO (08:15)
[2020-08-30] MEDS: FAMOTIDINE 20 MG TABLET PO (08:16)
--- NOTE | 2020-08-30 09:15 | PC.NURSE ---
Notified EUGENIA Simms regarding order to mix silver gel with collagenase and that silver deactivates the enzymatic in collagenase. Changing order to bactroban.
--- NOTE | 2020-08-30 09:30 | PC.NURSE ---
PT INCONTINENT OF SOFT LOOSE STOOL. DARK BROWN. INCONTINENT CARE PROVIDED. LINENS CHANGED. PT TURNED ON LEFT SIDE. NOTED COCCYX WOUND DRAINING BROWN LIQUID AND LARGE BROWN CRUST COVERING WOUND. TAYLOR COPIER AND PRINTER FIELD TECHNICIAN MADE AWARE. WILL OBTAIN NEW PICTURE.
--- NOTE | 2020-08-30 09:38 | PM.EVENT ---
Event Note Event Note Event Note: Wound to coccyx area is worsening added Bactroban and wound culture. Will take a new picture of wound and have consulted wound nurse for recommendation.
--- NOTE | 2020-08-30 09:51 | PC.NURSE ---
WOUND TREATMENT TO LEFT FOOT/TOE SURGICAL SITE, NOW OPEN TO AIR. SITE HEALED AND DRY.
[2020-08-30 11:24] LABS: Glucose Point of Care 98 (65-105)
[2020-08-30] MEDS: PROCHLORPERAZINE EDISYLATE 10 MG/2 ML VIAL IV PUSH (12:28)
[2020-08-30] MEDS: COLLAGENASE OINT 30 GM TUBE 1 APPLIC TOPICAL ×2 (13:00→20:44)
[2020-08-30] MEDS: LOPERAMIDE HCL 2 MG CAPSULE PO ×2 (13:55→17:59)
[2020-08-30 16:45] VITALS: BP 120/40; PULSE 80; RESP 18; TEMP 37.1; O2SAT 94
[2020-08-30] MEDS: MUPIROCIN 2% OINT 22 GM TUBE 1 APPLIC TOPICAL ×2 (17:43→20:44)
[2020-08-30 17:51] LABS: Glucose Point of Care 109 (65-105)
[2020-08-30 22:33] LABS: Glucose Point of Care 153 (65-105)
[2020-08-31] VITALS: BP 104/83; PULSE 86; RESP 20; TEMP 37.2; O2SAT 92
[2020-08-31] MEDS: OXACILLIN SODIUM 2 GM in SODIUM CHLORIDE 0.9% IV 100 ML IVPB ×6 (01:48→22:47)
[2020-08-31] MEDS: CYCLOBENZAPRINE HCL 10 MG TABLET PO ×3 (02:05→17:02)
[2020-08-31] MEDS: LOPERAMIDE HCL 2 MG CAPSULE PO (02:05)
[2020-08-31] MEDS: oxyCODONE HCL (*CRX) 5 MG TAB IR 10 MG PO ×4 (02:06→19:21)
[2020-08-31] MEDS: ACETAMINOPHEN 325 MG TABLET 650 MG PO ×2 (05:46→17:02)
[2020-08-31 07:56] VITALS: BP 114/38; PULSE 75; RESP 18; TEMP 36.6; O2SAT 94
[2020-08-31] MEDS: metFORMIN HCL 500 MG TABLET 1000 MG PO ×2 (08:23→17:02)
[2020-08-31] MEDS: DOCUSATE SODIUM 100 MG CAPSULE PO (08:23)
[2020-08-31] MEDS: VENLAFAXINE HCL XR 75 MG CAP.ER.24H 150 MG PO (08:23)
[2020-08-31] MEDS: CLOPIDOGREL BISULFATE 75 MG TABLET PO (08:23)
[2020-08-31] MEDS: ASPIRIN 81 MG CHEWABLE TABLET PO (08:23)
[2020-08-31] MEDS: ATORVASTATIN 40 MG TABLET 80 MG PO (08:23)
[2020-08-31] MEDS: FERROUS SULFATE 324 MG TABLET PO ×2 (08:24→17:03)
[2020-08-31] MEDS: GABAPENTIN 100 MG CAPSULE PO ×3 (08:24→17:03)
[2020-08-31] MEDS: PANTOPRAZOLE 40 MG TABLET PO (08:24)
[2020-08-31] MEDS: METOPROLOL SUCCINATE EXT REL 50 MG TABCR 200 MG PO (08:24)
[2020-08-31] MEDS: ENOXAPARIN 40 MG/0.4 ML SYRINGE SUB-Q (08:24)
[2020-08-31] MEDS: MUPIROCIN 2% OINT 22 GM TUBE 1 APPLIC TOPICAL ×2 (09:22→17:10)
[2020-08-31] MEDS: COLLAGENASE OINT 30 GM TUBE 1 APPLIC TOPICAL ×2 (09:22→22:05)
[2020-08-31 11:34] LABS: Glucose Point of Care 205 (65-105)
[2020-08-31 11:39] LABS: Glucose Point of Care 117 (65-105)
[2020-08-31 16:30] VITALS: BP 131/58; PULSE 76; RESP 18; TEMP 36.4; O2SAT 100
[2020-08-31 17:19] LABS: Glucose Point of Care 136 (65-105)
[2020-08-31] MEDS: LORazepam (*CRX) 1 MG TABLET PO (21:52)
[2020-08-31 23:16] LABS: Glucose Point of Care 130 (65-105)
[2020-08-31 23:49] VITALS: BP 125/80; PULSE 84; RESP 20; TEMP 36.7; O2SAT 97
[2020-09-01] MEDS: OXACILLIN SODIUM 2 GM in SODIUM CHLORIDE 0.9% IV 100 ML IVPB ×6 (01:54→21:47)
[2020-09-01] MEDS: CYCLOBENZAPRINE HCL 10 MG TABLET PO ×2 (04:23→20:39)
[2020-09-01] MEDS: oxyCODONE HCL (*CRX) 5 MG TAB IR 10 MG PO ×2 (04:23→09:03)
[2020-09-01 07:59] LABS: Glucose Point of Care 109 (65-105)
[2020-09-01 08:00] VITALS: BP 146/74; PULSE 77; RESP 18; TEMP 37.1; O2SAT 95
[2020-09-01] MEDS: ACETAMINOPHEN 325 MG TABLET 650 MG PO ×2 (08:01→18:39)
[2020-09-01] MEDS: LORazepam (*CRX) 1 MG TABLET PO ×2 (08:02→17:39)
--- NOTE | 2020-09-01 08:20 | P.PNCROSS_ITS ---
Event Note Event Note Event Note: Attempted to call the surgery department at [facility] at [phone]. To determine whether or not patient could transfer for 1 day for decubitus ulcer debridement. Due to weather the office is close will follow up on 09/02/2019 and spoke with either the nurse practitioner or a surgeon concerning whether or not this decubitus should be debrided. We have uploaded a new picture of the decubitus on sifonr. I have also put in a consult for wound care and will attempt to call them today.
[2020-09-01] MEDS: ENOXAPARIN 40 MG/0.4 ML SYRINGE SUB-Q (08:59)
[2020-09-01] MEDS: FAMOTIDINE 20 MG TABLET PO (09:00)
[2020-09-01] MEDS: metFORMIN HCL 500 MG TABLET 1000 MG PO ×2 (09:01→16:35)
[2020-09-01] MEDS: VENLAFAXINE HCL XR 75 MG CAP.ER.24H 150 MG PO (09:01)
[2020-09-01] MEDS: GABAPENTIN 100 MG CAPSULE PO ×3 (09:01→16:35)
[2020-09-01 09:02] VITALS: PULSE 77
[2020-09-01] MEDS: ASPIRIN 81 MG CHEWABLE TABLET PO (09:02)
[2020-09-01] MEDS: METOPROLOL SUCCINATE EXT REL 50 MG TABCR 200 MG PO (09:02)
[2020-09-01] MEDS: DOCUSATE SODIUM 100 MG CAPSULE PO ×2 (09:02→20:39)
[2020-09-01] MEDS: CLOPIDOGREL BISULFATE 75 MG TABLET PO (09:02)
[2020-09-01] MEDS: FERROUS SULFATE 324 MG TABLET PO ×2 (09:02→16:35)
[2020-09-01] MEDS: ATORVASTATIN 40 MG TABLET 80 MG PO (09:02)
[2020-09-01] MEDS: PANTOPRAZOLE 40 MG TABLET PO (09:03)
[2020-09-01] MEDS: MUPIROCIN 2% OINT 22 GM TUBE 1 APPLIC TOPICAL (09:03)
[2020-09-01] MEDS: COLLAGENASE OINT 30 GM TUBE 1 APPLIC TOPICAL ×2 (09:04→20:39)
[2020-09-01 16:00] VITALS: BP 141/67; PULSE 79; RESP 18; TEMP 36.3; O2SAT 94
[2020-09-01 16:37] LABS: Glucose Point of Care 148 (65-105)
[2020-09-01 16:37] LABS: Glucose Point of Care 120 (65-105)
[2020-09-01 20:44] LABS: Glucose Point of Care 105 (65-105)
[2020-09-02] VITALS: BP 143/61; PULSE 93; RESP 18; TEMP 35.9; O2SAT 96
[2020-09-02] MEDS: OXACILLIN SODIUM 2 GM in SODIUM CHLORIDE 0.9% IV 100 ML IVPB ×4 (01:44→13:41)
[2020-09-02] MEDS: oxyCODONE HCL (*CRX) 5 MG TAB IR 10 MG PO ×2 (04:11→21:25)
[2020-09-02] MEDS: CYCLOBENZAPRINE HCL 10 MG TABLET PO ×2 (04:11→15:09)
[2020-09-02] MEDS: LORazepam (*CRX) 1 MG TABLET PO ×2 (06:26→21:19)
[2020-09-02] MEDS: ACETAMINOPHEN 325 MG TABLET 650 MG PO ×2 (07:33→15:09)
[2020-09-02 07:44] LABS: Glucose Point of Care 103 (65-105)
[2020-09-02 07:55] VITALS: BP 137/66; PULSE 101; RESP 20; TEMP 37.2; O2SAT 90
[2020-09-02] MEDS: ENOXAPARIN 40 MG/0.4 ML SYRINGE SUB-Q (09:04)
[2020-09-02 09:05] VITALS: PULSE 101
[2020-09-02] MEDS: metFORMIN HCL 500 MG TABLET 1000 MG PO ×2 (09:05→16:53)
[2020-09-02] MEDS: PANTOPRAZOLE 40 MG TABLET PO (09:05)
[2020-09-02] MEDS: METOPROLOL SUCCINATE EXT REL 50 MG TABCR 200 MG PO (09:05)
[2020-09-02] MEDS: VENLAFAXINE HCL XR 75 MG CAP.ER.24H 150 MG PO (09:06)
[2020-09-02] MEDS: GABAPENTIN 100 MG CAPSULE PO ×3 (09:06→16:53)
[2020-09-02] MEDS: ASPIRIN 81 MG CHEWABLE TABLET PO (09:06)
[2020-09-02] MEDS: CLOPIDOGREL BISULFATE 75 MG TABLET PO (09:06)
[2020-09-02] MEDS: DOCUSATE SODIUM 100 MG CAPSULE PO ×2 (09:06→21:03)
[2020-09-02] MEDS: COLLAGENASE OINT 30 GM TUBE 1 APPLIC TOPICAL ×2 (09:07→21:21)
[2020-09-02] MEDS: FERROUS SULFATE 324 MG TABLET PO ×2 (09:07→16:53)
[2020-09-02] MEDS: ATORVASTATIN 40 MG TABLET 80 MG PO (09:07)
[2020-09-02] MEDS: MUPIROCIN 2% OINT 22 GM TUBE 1 APPLIC TOPICAL ×2 (09:08→16:53)
[2020-09-02 11:30] LABS: Glucose Point of Care 109 (65-105)
--- NOTE | 2020-09-02 12:58 | PC.NURSE ---
H/P, progress notes faxed to [place] for wound consult
[2020-09-02 13:00] VITALS: O2SAT 93
--- NOTE | 2020-09-02 13:30 | PM.EVENT ---
Event Note Event Note Event Note: Wound Cx returned Positive for E coli and Enterococcus species. Call out to ID at [phone] hours.
[2020-09-02] MEDS: ERTAPENEM 1 GM/NS 50 ML 1 GM/50 ML BAG IVPB (14:49)
[2020-09-02 15:50] VITALS: BP 136/65; PULSE 94; RESP 20; TEMP 37.7; O2SAT 94
[2020-09-02 21:16] LABS: Glucose Point of Care 89 (65-105)
[2020-09-02 21:16] LABS: Glucose Point of Care 91 (65-105)
[2020-09-02] MEDS: FAMOTIDINE 20 MG TABLET PO (23:19)
[2020-09-03] VITALS: BP 154/70; PULSE 92; RESP 20; TEMP 36.3; O2SAT 91
[2020-09-03] MEDS: CYCLOBENZAPRINE HCL 10 MG TABLET PO ×2 (02:00→13:51)
[2020-09-03 07:25] VITALS: BP 121/67; PULSE 98; RESP 18; TEMP 37.2; O2SAT 92
[2020-09-03 07:31] LABS: Glucose Point of Care 99 (65-105)
[2020-09-03] MEDS: FERROUS SULFATE 324 MG TABLET PO ×2 (07:35→17:06)
[2020-09-03] MEDS: metFORMIN HCL 500 MG TABLET 1000 MG PO ×2 (07:35→17:06)
[2020-09-03] MEDS: ENOXAPARIN 40 MG/0.4 ML SYRINGE SUB-Q (08:24)
[2020-09-03 08:25] VITALS: PULSE 78
[2020-09-03] MEDS: CLOPIDOGREL BISULFATE 75 MG TABLET PO (08:25)
[2020-09-03] MEDS: ASPIRIN 81 MG CHEWABLE TABLET PO (08:25)
[2020-09-03] MEDS: METOPROLOL SUCCINATE EXT REL 50 MG TABCR 200 MG PO (08:25)
[2020-09-03] MEDS: ATORVASTATIN 40 MG TABLET 80 MG PO (08:25)
[2020-09-03] MEDS: VENLAFAXINE HCL XR 75 MG CAP.ER.24H 150 MG PO (08:26)
[2020-09-03] MEDS: GABAPENTIN 100 MG CAPSULE PO ×3 (08:27→17:06)
[2020-09-03] MEDS: MUPIROCIN 2% OINT 22 GM TUBE 1 APPLIC TOPICAL ×2 (08:28→20:24)
[2020-09-03] MEDS: PANTOPRAZOLE 40 MG TABLET PO (08:28)
[2020-09-03] MEDS: DOCUSATE SODIUM 100 MG CAPSULE PO ×2 (08:28→20:23)
[2020-09-03] MEDS: oxyCODONE HCL (*CRX) 5 MG TAB IR 10 MG PO ×2 (08:31→20:45)
--- NOTE | 2020-09-03 11:02 | PC.NURSE ---
1030. more confused at this time. spo2 92% ra. repositioned and hob up. drg changed to coccyx. drainage to is foul odor and brown green. lots of eschar to buttocks. manpower development specialist manager aware of up confusion.
[2020-09-03 11:51] LABS: Glucose Point of Care 97 (65-105)
[2020-09-03] MEDS: polyethylene glycoL 3350 17 GM POWD.PACK PO ×2 (12:01→17:07)
[2020-09-03] MEDS: COLLAGENASE OINT 30 GM TUBE 1 APPLIC TOPICAL ×2 (13:53→20:24)
[2020-09-03] MEDS: ERTAPENEM 1 GM/NS 50 ML 1 GM/50 ML BAG IVPB (14:36)
[2020-09-03 16:00] VITALS: BP 116/74; PULSE 88; RESP 20; TEMP 37.4; O2SAT 92
--- NOTE | 2020-09-03 16:40 | PC.NURSE ---
lungs are diminished. spo2 on ra 92%. drowsy off and on. alert and orient and then is confused about surroundings. Thinks at this time chocolate cake was a few days ago and it was lunch. starts to carry on conversation and then goes off on something completely of osman with conversation. if questioned about what, I don't understand, she is upset, and then claims she is explaining her dreams to us. repositioned and ready for supper. bs present. drifts off on on. chilango gomez
[2020-09-03 17:23] LABS: Glucose Point of Care 107 (65-105)
[2020-09-03 20:44] LABS: Glucose Point of Care 119 (65-105)
[2020-09-03 23:27] VITALS: BP 134/59; PULSE 81; RESP 20; TEMP 37.4; O2SAT 90
[2020-09-04 05:45] LABS: Basophils Absolute Auto 0.04 K/mm3 (0.00-0.10); Basophils Percent Auto 0.4 % (0.0-1.0); Eosinophils Absolute Auto 0.25 K/mm3 (0.02-0.50); Eosinophils Percent Auto 2.4 % (1.0-6.0); Hematocrit 25.4 % (35.0-49.0); Hemoglobin 7.8 g/dL (12.0-15.0); Immature Granulocyte Absolute 0.06 K/mm3 (0.00-0.00); Immature Granulocyte Percent A 0.6 % (0.0-0.0); Lymphocytes Absolute Auto 1.39 K/mm3 (1.10-4.50); Lymphocytes Percent Auto 13.6 % (18.0-42.0); Mean Corpuscular HGB Conc 30.7 g/dL (32.0-36.0); Mean Corpuscular Hemoglobin 25.7 pg (27.0-31.0); Mean Corpuscular Volume 83.6 fL (78.0-102.0); Mean Platelet Volume 8.9 fl (9.2-11.8); Monocytes Absolute Auto 0.92 K/mm3 (0.10-0.90); Neutrophils Absolute Auto 7.6 K/mm3 (1.7-7.2); Platelet Count Result 348 K/mm3 (150-420); Red Blood Count 3.04 M/mm3 (4.20-5.40); Red Cell Distribution Width 16.7 % (11.6-14.4); White Blood Count 10.2 K/mm3 (4.8-10.8)
[2020-09-04 06:02] LABS: Alanine Aminotransferase 11 U/L (14-59); Albumin Level 1.5 g/dL (3.4-5.0); Alkaline Phosphatase 80 U/L (46-116); Anion Gap 8 mmol/L (8-16); Aspartate Amino Transferase 25 U/L (15-37); Bilirubin,Total 0.2 mg/dL (0.00-1.00); Blood Urea Nitrogen 8 mg/dL (7-18); Calcium 8.2 mg/dL (8.5-10.1); Carbon Dioxide 27 mmol/L (21-32); Chloride 102 mmol/L (98-108); Estimated CRCL calculation 106 ml/min; Estimated Glomerular Filt Rate > 60; Glucose 97 mg/dL (70-99); Osmolality Calculated 282 mOsm/kg (285-295); Potassium 3.2 mmol/L (3.5-5.1); Sodium 137 mmol/L (136-145)
[2020-09-04] MEDS: ACETAMINOPHEN 325 MG TABLET 650 MG PO (06:52)
[2020-09-04] MEDS: LORazepam (*CRX) 1 MG TABLET PO (07:48)
[2020-09-04 07:50] LABS: Glucose Point of Care 105 (65-105)
--- NOTE | 2020-09-04 07:51 | PC.NURSE ---
Pt tearful over hospitalization and is wanting to go home. CASINO WORKER spoke with patient to calm her. Ativan given per orders. BS 105.
[2020-09-04] MEDS: metFORMIN HCL 500 MG TABLET 1000 MG PO (07:55)
[2020-09-04] MEDS: FERROUS SULFATE 324 MG TABLET PO (07:55)
[2020-09-04 08:00] VITALS: BP 138/71; PULSE 97; RESP 18; TEMP 36.7; O2SAT 91
[2020-09-04 09:07] VITALS: PULSE 97
[2020-09-04] MEDS: PANTOPRAZOLE 40 MG TABLET PO (09:07)
[2020-09-04] MEDS: VENLAFAXINE HCL XR 75 MG CAP.ER.24H 150 MG PO (09:07)
[2020-09-04] MEDS: ASPIRIN 81 MG CHEWABLE TABLET PO (09:07)
[2020-09-04] MEDS: CLOPIDOGREL BISULFATE 75 MG TABLET PO (09:07)
[2020-09-04] MEDS: ENOXAPARIN 40 MG/0.4 ML SYRINGE SUB-Q (09:07)
[2020-09-04] MEDS: ATORVASTATIN 40 MG TABLET 80 MG PO (09:07)
[2020-09-04] MEDS: GABAPENTIN 100 MG CAPSULE PO ×2 (09:07→13:14)
[2020-09-04] MEDS: METOPROLOL SUCCINATE EXT REL 50 MG TABCR 200 MG PO (09:07)
[2020-09-04] MEDS: DOCUSATE SODIUM 100 MG CAPSULE PO (09:07)
[2020-09-04] MEDS: MUPIROCIN 2% OINT 22 GM TUBE 1 APPLIC TOPICAL (09:08)
[2020-09-04] MEDS: COLLAGENASE OINT 30 GM TUBE 1 APPLIC TOPICAL (09:08)
[2020-09-04] MEDS: POTASSIUM CHLORIDE 20 MEQ PACKET (FOR LIQUID) 40 MEQ PO (10:55)
[2020-09-04 11:41] LABS: Glucose Point of Care 91 (65-105)
[2020-09-04] MEDS: CYCLOBENZAPRINE HCL 10 MG TABLET PO (13:15)
--- NOTE | 2020-09-04 13:27 | P.DS_ITS ---
DS: Admitting Diagnosis Admitting Diagnosis Admitting Diagnosis: Paraspinal abscess, Paraplegia, Osteomyelitis DS: Discharge Diagnosis Discharge Diagnosis (1) Ulcer: Status: Acute Assessment and Plan: * To the buttocks area * Unstageable will consult wound care * Continue current wound care until wound care nurse recommendation * with Abscess that started draining about Tuesday/Friday 09/01- of edwards yellow very foul smelling exudate, Cultures returned E coli and Enterococcus species and Ab changes to Ertapenem, Concern for how deep the abscess is and that the area needs debridement Pt is being transferred to [facility] from whence she came to this facility for Swing bed and fdc Ab Tx for surgical evaluation and possible I&D/Debridement of the gluteal cleft Ulceration with Left buttock abscess * Dr. Joyce Kunz accepting Hospitalist. * Pain control with Oxycodone 10 mg Q6H, Anxiety treated with Ativan PRN 1mg PO Q6H, muscle spasm treated with Flexeril 10 mg TID PRN. Santyl to Ulcer with Bactroban (2) Weakness: Code(s): R53.1 - Weakness Status: Acute Assessment and Plan: ? PT/OT will work on upper body strength * Exhibit tolerance during physical activity. ? Patient will be instructed how to move about with respect to her paraplegia and perform required activities of daily living. ?Provide appropriate nutrition for healing and strength, encouraged to finish her meals, Glucerna added to meals. ?Continue physical therapy/occupational therapy. (3) Paraspinal abscess: Code(s): M46.20 - Osteomyelitis of vertebra, site unspecified Status: Acute Assessment and Plan: * MRI of the vertebrae 06/08/2021-oval peripheral enhancing fluid collection in the left posterior upper lung field measuring 4.6 x 3.2 cm. * Associated with epidural phlegmon with paraplegia * Oxacillin IV for 6 weeks, end date of 09/29/2020, changed to Ertapenem due to wound Cx returning E coli and Enteroccocous species with plan to stay on projected end date of 09/29/2020 * ID will need weekly labs and follow-up (4) Amputation of left great toe: Code(s): S98.112A - Complete traumatic amputation of left great toe, initial encounter Status: Acute Assessment and Plan: * MRI at outside hospital indicates overlying cellulitis and osteomyelitis of the first metatarsal * VALERIA showed left foot mild arterial insufficiency * Sutures removed from previous provider on 08/25/2020 * Nonweightbearing on forefoot * well healed at this time . (5) Depression: Code(s): F32.9 - Major depressive disorder, single episode, unspecified Status: Acute Assessment and Plan: continue Effexor, Ativan added for Anxiety (6) Type 2 diabetes mellitus: Code(s): E11.9 - Type 2 diabetes mellitus without complications Status: Acute Assessment and Plan: * Blood sugars controlled * Continue Accu-Chek with sliding scale hypoglycemic protocol * glucose checks ACHS, Hypoglycemic protocol in place * Consistent Carb Diet * continue Gabapentin, Glargine 32 U PM, SSI, Metformin, will make adjustments as needed (7) Epigastric pain: Code(s): R10.13 - Epigastric pain Status: Acute Assessment and Plan: * Continue Pepcid and Protonix, Zofran (8) Hypertension: Code(s): I10 - Essential (primary) hypertension Status: Acute Assessment and Plan: * Vital signs slightly elevated we will continue to monitor and adjust as needed * continue with metoprolol, * monitor VS, * make a
--- NOTE | 2020-09-04 13:27 | PM.DS ---
DS: Admitting Diagnosis Admitting Diagnosis Admitting Diagnosis: Paraspinal abscess, Paraplegia, Osteomyelitis DS: Discharge Diagnosis Discharge Diagnosis (1) Ulcer: Status: Acute Assessment and Plan: To the buttocks area Unstageable will consult wound care Continue current wound care until wound care nurse recommendation with Abscess that started draining about Tuesday/Friday 09/01- of edwards yellow very foul smelling exudate, Cultures returned E coli and Enterococcus species and Ab changes to Ertapenem, Concern for how deep the abscess is and that the area needs debridement Pt is being transferred to [facility] from whence she came to this facility for Swing bed and roasterman Ab Tx for surgical evaluation and possible I&D/Debridement of the gluteal cleft Ulceration with Left buttock abscess Dr. Joyce Kunz accepting Hospitalist. Pain control with Oxycodone 10 mg Q6H, Anxiety treated with Ativan PRN 1mg PO Q6H, muscle spasm treated with Flexeril 10 mg TID PRN. Santyl to Ulcer with Bactroban (2) Weakness: Code(s): R53.1 - Weakness Status: Acute Assessment and Plan: ? PT/OT will work on upper body strength Exhibit tolerance during physical activity. ? Patient will be instructed how to move about with respect to her paraplegia and perform required activities of daily living. ?Provide appropriate nutrition for healing and strength, encouraged to finish her meals, Glucerna added to meals. ?Continue physical therapy/occupational therapy. (3) Paraspinal abscess: Code(s): M46.20 - Osteomyelitis of vertebra, site unspecified Status: Acute Assessment and Plan: MRI of the vertebrae 06/08/2021-oval peripheral enhancing fluid collection in the left posterior upper lung field measuring 4.6 x 3.2 cm. Associated with epidural phlegmon with paraplegia Oxacillin IV for 6 weeks, end date of 09/29/2020, changed to Ertapenem due to wound Cx returning E coli and Enteroccocous species with plan to stay on projected end date of 09/29/2020 ID will need weekly labs and follow-up (4) Amputation of left great toe: Code(s): S98.112A - Complete traumatic amputation of left great toe, initial encounter Status: Acute Assessment and Plan: MRI at outside hospital indicates overlying cellulitis and osteomyelitis of the first metatarsal VALERIA showed left foot mild arterial insufficiency Sutures removed from previous provider on 08/25/2020 Nonweightbearing on forefoot well healed at this time . (5) Depression: Code(s): F32.9 - Major depressive disorder, single episode, unspecified Status: Acute Assessment and Plan: continue Effexor, Ativan added for Anxiety (6) Type 2 diabetes mellitus: Code(s): E11.9 - Type 2 diabetes mellitus without complications Status: Acute Assessment and Plan: Blood sugars controlled Continue Accu-Chek with sliding scale hypoglycemic protocol glucose checks ACHS, Hypoglycemic protocol in place Consistent Carb Diet continue Gabapentin, Glargine 32 U PM, SSI, Metformin, will make adjustments as needed (7) Epigastric pain: Code(s): R10.13 - Epigastric pain Status: Acute Assessment and Plan: Continue Pepcid and Protonix, Zofran (8) Hypertension: Code(s): I10 - Essential (primary) hypertension Status: Acute Assessment and Plan: Vital signs slightly elevated we will continue to monitor and adjust as needed continue with metoprolol, monitor VS, make adjustment to medications as needed. (9) Vertebral osteomyelitis: Code(s): M46.20 - Osteomyelitis of vertebra, site unspecified Status: Acute Assessment and Plan: Oxacillin IV for 6 weeks with end date of 09/29/2020, Ab changed to Ertapenem (see note under Paraspinal Abscess above) Continue lidocaine Patch, Oxycodone (10) Paraplegia: Code(s): G82.20 - Paraplegia, unspecified Stat
[2020-09-04 15:05] VITALS: BP 126/64; PULSE 86; RESP 18; TEMP 36.6; O2SAT 91
--- NOTE | 2020-09-04 15:15 | PC.NURSE ---
Report called to Akosua Newby on patient. Patient being transferred to room 7944 Bed A.
[2020-09-04] MEDS: ERTAPENEM 1 GM/NS 50 ML 1 GM/50 ML BAG IVPB (15:35)
--- NOTE | 2020-09-04 16:00 | PC.NURSE ---
[facility] here to transport patient to [facility]. All belonging taken home by . Small bag of belongings sent with patient, including dentures, book,phone and flat breakdown processor. Patient transferred from bed to stretcher with 4x assist. tolerated fair. PICC line left in, dressing dry and intact. All discharge instructions and discharge packet send with EMS. aware of patient being transferred. Patient left floor via stretcher accompanied by EMS.
== END 2020-09-04 16:00 | disposition short-term general hospital (02) | DRG 539 ==
PROVIDERS: Nurse Practitioner; Nurse Practitioner Family; Admitting Provider Emergency Medicine; PCP Internal Medicine; Visit Provider Emergency Medicine
DX: M46.24 Osteomyelitis of vertebra, thoracic region (principal); J86.9 Pyothorax without fistula; G82.20 Paraplegia, unspecified; L02.31 Cutaneous abscess of buttock; L89.320 Pressure ulcer of left buttock, unstageable; E11.69 Type 2 diabetes mellitus with other specified complication; D64.9 Anemia, unspecified; I10 Essential (primary) hypertension; I73.9 Peripheral vascular disease, unspecified; R10.13 Epigastric pain; B96.20 Unspecified Escherichia coli [E. coli] as the cause of diseases classified elsewhere; F32.9 Major depressive disorder, single episode, unspecified; Z87.891 Personal history of nicotine dependence; Z89.412 Acquired absence of left great toe
CPT/HCPCS: 36415; 80048; 80053; 82948; 85014; 85018; 85025; 85027; 87070; 87147; 87186; 87205; 97110; 97162; 97165; 97530; 97535; A9270; J0780; J1335; J1650; J1815; J2700